=== PATIENT | female | born 1995 | race American Indian/Alaskan Native ===

== ENCOUNTER 2018-06-27 11:54 | Emergency (ER) | payer SELFPAY ==
[2018-06-27 12:17] VITALS: BP 118/77
[2018-06-27 12:47] LABS: HCG Qualitative,Urine Negative (Negative)
[2018-06-27 12:48] LABS: Bacteria,Urine 3+ /HPF (Negative); Bilirubin,Urine NEG (Negative); Blood,Urine SM (Negative); Color,Urine Yellow (Yellow); Mucus,Urine FEW /HPF; Urobilinogen,Urine < 2.0 mg/dL (<2.0)
[2018-06-27 12:49] LABS: WBC,Urine > 182.0 /HPF (0.0-6.0)
--- NOTE | 2018-06-27 13:48 | Emergency Department Report ---
ED Female HPI - General Chief complaint: Urogenital-Female Stated complaint: UTI Time Seen by Provider: 06/27/18 13:42 Source: patient Mode of arrival: Ambulatory Limitations: No Limitations - History of Present Illness MD Complaint: dysuria, other (hematuria, frequency) -: Gradual, days(s) (2) Severity: mild Quality: burning Consistency: intermittent Worsens with: urination Are you Now?: No - Related Data Previous Rx's Medication Instructions Recorded Last Taken Type Amoxicillin/K Clav Tab [Augmentin 1 tab PO BID #20 tablet 01/29/14 Unknown Rx 875MG TAB] Docusate Sodium [Colace ORAL LIQ] 100 mg PO BID #60 tab 01/29/14 Unknown Rx oxyCODONE /ACETAMINOPHEN [Percocet 2 tab PO Q6H PRN #45 tablet 01/29/14 Unknown Rx 5/325 mg] Clindamycin [Clindamycin CAP] 300 mg PO Q8H #30 cap 08/09/16 Unknown Rx HYDROcodone/APAP 5-325 [Wat[place] 1 each PO Q6HR PRN #10 tablet 08/09/16 Unknown Rx 5/325] Cephalexin [Keflex] 500 mg PO QID 5 Days #20 capsule 06/27/18 Unknown Rx Allergies Allergy/AdvReac Type Severity Reaction Status Date / Time No Known Allergies Allergy Unverified 01/27/14 12:03 ED Review of Systems ROS: Stated complaint: UTI Other details as noted in HPI Constitutional: denies: fever, malaise Cardiovascular: denies: chest pain Gastrointestinal: denies: abdominal pain Genitourinary: urgency, dysuria, frequency, hematuria ED Past Medical Hx - Past Medical History Previous Medical History?: Yes Additional medical history: anemia - Surgical History Past Surgical History?: No - Social History Smoking Status: Never Smoker Substance Use Type: None - Medications Home Medications: Home Medications Medication Instructions Recorded Confirmed Last Taken Type Amoxicillin/K Clav Tab [Augmentin 1 tab PO BID #20 tablet 01/29/14 Unknown Rx 875MG TAB] Docusate Sodium [Colace ORAL LIQ] 100 mg PO BID #60 tab 01/29/14 Unknown Rx oxyCODONE /ACETAMINOPHEN [Percocet 2 tab PO Q6H PRN #45 tablet 01/29/14 Unknown Rx 5/325 mg] Clindamycin [Clindamycin CAP] 300 mg PO Q8H #30 cap 08/09/16 Unknown Rx HYDROcodone/APAP 5-325 [Watson 1 each PO Q6HR PRN #10 tablet 08/09/16 Unknown Rx 5/325] Cephalexin [Keflex] 500 mg PO QID 5 Days #20 capsule 06/27/18 Unknown Rx ED Physical Exam - General Limitations: No Limitations General appearance: alert, in no apparent distress - Head Head exam: Present: atraumatic, normocephalic - ENT ENT exam: Present: mucous membranes moist - Neck Neck exam: Present: normal inspection, full ROM - Respiratory Respiratory exam: Absent: respiratory distress - GI/Abdominal GI/Abdominal exam: Present: soft, distended, tenderness, guarding, rebound - Back Exam Back exam: Absent: CVA tenderness (R), CVA tenderness (L) - Neurological Exam Neurological exam: Present: alert, oriented X3 ED Course Vital Signs 06/27/18 12:15 Temperature 98.1 F Pulse Rate 78 Respiratory 16 Rate Blood Pressure 118/77 O2 Sat by Pulse 98 Oximetry ED Medical Decision Making - Lab Data Laboratory Results - last 24 hr 06/27/18 12:26 Urine Color Yellow Urine Turbidity Cloudy Urine pH 6.0 Ur Specific [place] 1.023 Urine Protein 30 mg/dl Urine Glucose (UA) Neg Urine Ketones Neg Urine Blood Sm Urine Nitrite Neg Ur Reducing Substances Not Reportable Urine Bilirubin Neg Urine Ictotest Not Reportable Urine Urobilinogen < 2.0 Ur Leukocyte Esterase Lg Urine WBC (Auto) > 182.0 H Urine RBC (Auto) 23.0 U Epithel Cells (Auto) 1.0 Urine Bacteria (Auto) 3+ Urine Mucus Few Urine HCG, Qual Negative - Medical Decision Making Well-appearing patient with UTI evident by urinalysis results prescribed cephalexin Critical care attestation.: If time is entered above; I have spent that time in minutes in the direct care of this critically ill patient, excluding procedure time. ED Disposition Clinical Impression: UTI (urinary tract infection) Disposition: TO HOME OR SELFCARE Is pt being admited?: No Does the pt Need Aspirin: No Condition: Stable Instructions: Urinary Tract Infection in Women (ED) Prescriptions: Cephalexin [Keflex] 500 mg PO QID 5 Days #20 capsule Forms: Work/School Release Form(ED)
== END 2018-06-27 13:58 | disposition home or self-care (01) ==
LOC: ED 11:54
DX: N39.0 Urinary tract infection, site not specified (principal); D64.9 Anemia, unspecified
CPT/HCPCS: 81001; 81025; 99283

== ENCOUNTER 2019-09-22 17:59 | Emergency (ER) | payer SELFPAY ==
--- NOTE | 2019-09-22 21:25 | Emergency Department Report ---
Chief Complaint: Sore Throat Stated Complaint: THROAT PAIN/SORES Time Seen by Provider: 09/22/19 20:58 - HPI History of Present Illness: 23-year-old -[place] Citizen female presents to the emergency room complaining of sore throat for 2 days. Patient states that she is been using Chloraseptic and it is resolving. Patient denies any cough chest pain or shortness of breath. Patient denies any fever or chills. - Exam Vital Signs: Vital Signs 09/22/19 18:30 Temperature 98.7 F Pulse Rate 73 Respiratory 16 Rate Blood Pressure 124/72 O2 Sat by Pulse 100 Oximetry Physical Exam: Alert and oriented 3 nontoxic in appearance of distress [place] is moist pharyngeal erythematous no exudate appreciated neck no lymphadenopathy no tenderness Cardiac regular rate and rhythm no murmurs Lungs are to auscultation bilateral Neuro ambulating without difficulties MSE screening note: Focused history and physical exam performed. Due to findings the following was ordered: 23-year-old -[place] Citizen female presents to the emergency room complaining of sore throat for 2 days. Patient states that she is been using Chloraseptic and it is resolving. Patient denies any cough chest pain or shortness of breath. Patient denies any fever or chills. Strep test is negative. Patient continued with Chloraseptic Tylenol or ibuprofen increase fluid intake ED Disposition for MSE Clinical Impression: Sore throat (viral) Disposition: Z-07 MED SCREENING EXAM-LEFT Is pt being admited?: No Does the pt Need Aspirin: No Condition: Stable Additional Instructions: Strep test is negative. Patient continued with Chloraseptic Tylenol or ibuprofen increase fluid intake Referrals: [facility] [Outside] - 3-5 Days
[2019-09-22 21:34] VITALS: BP 104/69
== END 2019-09-22 21:32 | disposition left against medical advice (07) ==
LOC: ED 17:59
DX: J02.8 Acute pharyngitis due to other specified organisms (principal)
CPT/HCPCS: 87116; 87430